=== PATIENT | female | born 1980 | race African-American/Black ===

== ENCOUNTER 2016-09-02 19:52 | Emergency (ER) | payer OTHER ==
[~2016-09-02] VITALS: Ht 175.3 cm; Wt 53.1 kg
[2016-09-02] MEDS ORDERED: UNICOMPLEX M TA1 TA1 PO (20:25)
[2016-09-02 20:32] LABS: URINE BILIRUBIN NEGATIVE (Negative); URINE BLOOD NEGATIVE (Negative); URINE COLOR YELLOW; URINE GLUCOSE-RANDOM* NEGATIVE (Negative); URINE KETONES NEGATIVE (Negative); URINE NITRITE NEGATIVE (Negative); URINE PROTEIN (DIPSTICK) NEGATIVE (Negative); URINE UROBILINOGEN 0.2 E.U./dl (0.2-1.0)
[2016-09-02 20:44] LABS: ABSOLUTE NEUTROPHILS 2.6 thou/uL (1.4-8.2); BASOPHILS 1.1 % (0.0-2.0); EOSINOPHILS 1.5 % (0.0-3.0); HEMATOCRIT 39.1 % (37.0-47.0); HEMOGLOBIN 13.2 gm/dL (12.0-15.0); LYMPHOCYTES 38.9 % (24.0-44.0); MCH 30.4 pg (26.0-34.0); MCHC 33.9 g/dL (28.0-37.0); MCV 89.7 fL (80.0-100.0); MONOCYTES 11.3 % (1.0-8.0); PLATELET COUNT 221 thou/uL (150-400); POLYS 47.2 % (36.0-66.0); RBC 4.36 mil/uL (4.20-5.00); RDW 13.3 % (10.5-14.5); WBC 5.5 thou/uL (4.0-11.0)
[2016-09-02 20:53] LABS: CALCIUM 9.1 mg/dL (8.5-10.1); CREATININE 0.9 mg/dL (0.6-1.0); POTASSIUM 3.9 mmol/L (3.5-5.1)
[2016-09-02 20:56] LABS: MANUAL DIFF NO
[2016-09-02 20:57] LABS: ALBUMIN 3.8 g/dL (3.4-5.0); DIRECT BILIRUBIN 0.1 mg/dL (<0.1-0.3); TOTAL BILIRUBIN 0.4 mg/dL (<0.1-1.0); TOTAL PROTEIN 7.4 g/dL (6.4-8.2)
[2016-09-02] MEDS ORDERED: CARAFATE 1 GM TA1 G1 PO (22:16)
[2016-09-02] MEDS ORDERED: NAPROSYN500 MG PO (22:16)
[2016-09-02 22:39] VITALS: BP 100/64
== END 2016-09-02 22:40 | disposition home or self-care (01) ==
LOC: ER 19:52
PROVIDERS: Nurse Practitioner
DX: R10.11 Right upper quadrant pain (principal); Z90.89 Acquired absence of other organs